=== PATIENT | male | born 1995 | race Caucasian/White ===

== ENCOUNTER 2019-08-04 16:28 | Emergency (ER) | payer MEDICAID ==
[~2019-08-04] VITALS: Ht 185.4 cm; Wt 86.4 kg
[2019-08-04 16:33] VITALS: BP 153/75
[2019-08-04] MEDS ORDERED: IBUP-2070 PO (16:46)
[2019-08-04] MEDS ORDERED: ALBU8.5H8 IH (16:46)
== END 2019-08-04 19:32 | disposition home or self-care (01) ==
LOC: EMS 16:30
DX: S93.402A Sprain of unspecified ligament of left ankle, initial encounter (principal); R03.0 Elevated blood-pressure reading, without diagnosis of hypertension; J45.909 Unspecified asthma, uncomplicated; F17.200 Nicotine dependence, unspecified, uncomplicated; X50.1XXA Overexertion from prolonged static or awkward postures, initial encounter; Y93.89 Activity, other specified; Y92.89 Other specified places as the place of occurrence of the external cause; Y99.8 Other external cause status